=== PATIENT | male | born 1970 | race Caucasian/White ===

== ENCOUNTER 2017-03-20 14:33 | Emergency (ER) | payer BC ==
[~2017-03-20] VITALS: Ht 182.9 cm; Wt 123.4 kg
[~2017-03-20 14:33] MED LIST: ASPI81TA3 PO; CARV3.12 PO; NITR0.4T39 SL; PANT40TA4 PO
[2017-03-20 14:39] VITALS: Ht 182.9 cm; Wt 123.4 kg
[2017-03-20] MEDS ORDERED: ASPIRIN 325 MG TAB PO STA (16:06)
[2017-03-20 16:27] LABS: BASOPHILS % 0.2 % (0.0-2.0); EOSINOPHILS # 0.1 10^3/ul (0.0-0.5); EOSINOPHILS % 0.7 % (0.0-7.0); HEMATOCRIT 41.5 % (42.0-52.0); LYMPHOCYTES # 1.7 10^3/ul (0.8-2.9); LYMPHOCYTES % 21.6 % (15.0-51.0); MEAN CORPUSCULAR HEMOGLOBIN 31.1 pg (29.0-33.0); MEAN CORPUSCULAR HGB CONC 36.1 g/dl (32.0-37.0); MEAN CORPUSCULAR VOLUME 86.1 fl (82.0-101.0); MEAN PLATELET VOLUME 9.9 fl (7.4-10.4); MONOCYTE # 0.5 10^3/ul (0.3-0.9); MONOCYTES % 6.7 % (0.0-11.0); NEUTROPHIL # 5.7 10^3/ul (1.6-7.5); NEUTROPHILS % 70.6 % (39.0-77.0); PLATELET COUNT 219 10^3/UL (140-415); RED BLOOD COUNT 4.82 10^6/ul (4.70-6.10); RED CELL DISTRIBUTION WIDTH 11.9 % (11.5-14.5); WHITE BLOOD COUNT 8.1 10^3/ul (4.8-10.8)
[2017-03-20 16:45] LABS: ALANINE AMINOTRANSFERASE 57 IU/L (13-69); ALBUMIN/GLOBULIN RATIO 1.33; ALKALINE PHOSPHATASE 70 IU/L (42-121); ANION GAP 14 (8-16); ASPARTATE AMINO TRANSFERASE 25 IU/L (15-46); BILIRUBIN,INDIRECT 0.6 mg/dl (0-1.1); BILIRUBIN,TOTAL 0.6 mg/dl (0.2-1.3); BLOOD UREA NITROGEN 15 mg/dl (7-20); CALCIUM 8.7 mg/dl (8.4-10.2); CARBON DIOXIDE 27 mmol/L (21-31); CHLORIDE 102 mmol/L (97-110); CREATINE KINASE 97 IU/L (23-200); CREATININE 0.92 mg/dl (0.61-1.24); GLUCOSE 126 mg/dl (70-220); POTASSIUM 3.8 mmol/L (3.5-5.1); SODIUM 139 mmol/L (135-144)
--- NOTE | 2017-03-20 16:48 | RADRPT ---
PROCEDURE: Chest x-ray CLINICAL INDICATION: Chest pain TECHNIQUE: Chest single view COMPARISON: 11/29/2014 FINDINGS: The heart is normal in size. The pulmonary vessels are normal in caliber. The lungs are clear. Th e costophrenic angles are sharp. The visualized bony thorax is unremarkable. IMPRESSION: No acute cardiopulmonary disease. RPTAT: HH .Rogers Young MD, Date Time Electronically viewed and signed by .Rogers Young MD, on 03/20/2017 16:47 .W/
[2017-03-20 16:52] LABS: INR 0.9; PROTIME 12.2 Sec (11.9-14.9)
[2017-03-20 16:53] LABS: PARTIAL THROMBOPLASTIN TIME 30.6 Sec (25.0-35.0)
[2017-03-20 16:57] LABS: B-TYPE NATRIURETIC PEPTIDE 42 PG/ML (0-125)
[2017-03-20 17:05] LABS: CK-MB 1.03 ng/ml (0.0-2.4); TROPONIN-I < 0.012 ng/ml (0.00-0.12)
[2017-03-20 17:30] VITALS: BP 119/82; PULSE 71; RESP 6; TEMP 98
--- NOTE | 2017-03-20 17:40 | ERD ---
ER Documentation Chief Complaint Chief Complaint INTERMIT LEFT SIDED CHEST PAIN RAD TO BACK/LT ARM W/ NAUSEA X1DAY HPI This is a very pleasant 46-year-old male with no past medical history that presents to the emergency department complaining of a sudden onset of sharp shooting left-sided chest pain that began 24 hours prior to arrival. The patient indicates he has been undergoing a significant amount of stress as he was at the graveyard bearing his aunt when he developed the left-sided chest pain. He indicated that he noticed the pain go to his left and right shoulder and also to his lower back. The pain was exacerbated with movement of the left upper extremity. He is right-handed dominant. He stated that the pain has been intermittent and will last for several hours and then spontaneously resolved. He did not take any analgesic medication. Contrary to the triage note he denied any associated symptoms of nausea vomiting or diaphoresis. He does not smoke tobacco. He has no family history of coronary artery disease in his first-degree relatives at less than 55. He denied any abdominal pain. He denied any shortness of breath at rest or exertion. He stated the pain was 3 out of 10 in intensity. His primary care physician is Dr. Reynolds. ROS All systems reviewed and are negative except as per history of present illness. Medications Home Meds Discontinued Scripts Carvedilol* (Coreg*) 3.125 Mg Tab, 3.125 MG PO BID for 30 Days Prov:CEDRIC CORDON 11/30/14 Pantoprazole* (Pantoprazole*) 40 Mg Tabec, 40 MG PO BID@06,18 for 30 Days Prov:CEDRIC CORDON 11/30/14 Nitroglycerin* (Nitrostat*) 25 Tab Subl, 0.4 MG SL Q5M Y for CHEST PAIN, #14 3 doses max Prov:REGCEDRIC NOLAN 11/30/14 Aspirin (Aspirin) 81 Mg Chew, 81 MG PO DAILY for 30 Days Prov:CEDRIC CORDON 11/30/14 Allergies Allergies: Coded Allergies: No Known Allergy (Unverified , 03/20/17) PMhx/Soc Medical and Surgical Hx: pt denies Surgical Hx History of Surgery: No Anesthesia Reaction: No Hx Neurological Disorder: No Hx Respiratory Disorders: No Hx Cardiac Disorders: No Hx Psychiatric Problems: No Hx Miscellaneous Medical Probl: Yes (GERD dx year ago) Hx Alcohol Use: Yes (moderate) Hx Substance Use: No Hx Tobacco Use: Yes Smoking Status: Former smoker Physical Exam Vitals Vital Signs Date Time Temp Pulse Resp B/P Pulse Ox O2 Delivery O2 Flow Rate FiO2 03/20/17 17:30 98.0 64 12 112/88 98 Room Air 03/20/17 16:00 0 03/20/17 16:00 98.9 96 20 120/79 98 Room Air 03/20/17 14:39 97.9 78 12 138/75 98 Physical Exam Constitutional:Well-developed. Well-nourished. HEENT:Normocephalic. Atraumatic.Pupils were equal round reactive to light. Moist mucous membranes.No tonsillar exudates. Neck: No nuchal rigidity. No lymphadenopathy. No posterior cervical spine tenderness or step-offs. Respiratory: Not using accessory muscles of respiration.Lungs were clear to auscultation bilaterally. No rhonchi. No rales. No wheezing. Cardiovascular: Regular rate regular rhythm.No murmurs. No rubs were appreciated.S1, S2 normal. Distal pulses are palpable 2+ bilaterally. Reproducible left substernal chest wall tenderness with no crepitus no ecchymosis no flail chest GI: Abdomen was soft. Nontender. Non Distended. No pulsatile abdominal masses or bruits. No rebound. No guarding. Bowel sounds were present and normal. Muscle skeletal: Full range of motion of both the upper and lower extremities bilaterally.Normal muscle tone.No assymetrical calf tenderness or swelling. Skin: No petechia, no purpura. No lesions on the palms or the soles of the feet. No maculopapular rash. NEURO: Patient was alert, awake, orientated x3.No facial droop. Gait observed and normal with no ataxia.Speech had regular rate and rhythm. No focal neurological deficits. Result Diagram: 03/20/17 1615 03/20/17 1615 Results 24 hrs Laboratory Tests Test 03/20/17 16:15 White Blood Count 8.110^3/ul Red Blood Count 4.8210^6/ul Hemoglobin 15.0g/dl Hematocrit 41.5% Mean Corpuscular Volume 86.1fl Mean Corpuscular Hemoglobin 31.1pg Mean Corpuscular Hemoglobin Concent 36.1g/dl Red Cell Distribution Width 11.9% Platelet Count 43530^3/UL Mean Platelet Volume 9.9fl Neutrophils % 70.6% Lymphocytes % 21.6% Monocytes % 6.7% Eosinophils % 0.7% Basophils % 0.2% Nucleated Red Blood Cells % 0.0/100WBC Neutrophils # 5.710^3/ul Lymphocytes # 1.710^3/ul Monocytes # 0.510^3/ul Eosinophils # 0.110^3/ul Basophils # 0.010^3/ul Nucleated Red Blood Cells # 0.010^3/ul Prothrombin Time 12.2Sec Prothrombin Time Ratio 1.0 INR International Normalized Ratio 0.90 Activated Partial Thromboplast Time 30.6Sec Sodium Level 139mmol/L Potassium Level 3.8mmol/L Chloride Level 102mmol/L Carbon Dioxide Level 27mmol/L Anion Gap 14 Blood Urea Nitrogen 15mg/dl Creatinine 0.92mg/dl Glucose Level 126mg/dl Calcium Level 8.7mg/dl Total Bilirubin 0.6mg/dl Direct Bilirubin 0.00mg/dl Indirect Bilirubin 0.6mg/dl Aspartate Amino Transf (AST/SGOT) 25IU/L Alanine Aminotransferase (ALT/SGPT) 57IU/L Alkaline Phosphatase 70IU/L Creatine Kinase 97IU/L Creatine Kinase Index 1.1 Creatinine Kinase MB (Mass) 1.03ng/ml Troponin I < 0.012ng/ml B-Type Natriuretic Peptide 42PG/ML Total Protein 7.0g/dl Albumin 4.0g/dl Globulin 3.00g/dl Albumin/Globulin Ratio 1.33 Current Medications Medications (Trade) Dose Ordered Sig/Gregoria Route PRN Reason Start Time Stop Time Status Last Admin Dose Admin Aspirin (Aspirin) 325 mg ONCE STAT PO 03/20/17 16:06 03/20/17 16:07 DC 03/20/17 17:02 Procedures/[facility] The patient presented to the emergency department complaining of chest pain. My clinical evaluation and workup was to distinguish minor causes of chest pain from acute life threatening cardiopulmonary causes such as myocardial infarction , pulmonary embolism, aortic dissection, esophageal rupture, cardiac tamponade. The patient had no risk factors for pulmonary embolism. The patient was placed on a surveillance monitor, continuous pulse oximetry and IV access established by nursing staff. 12 Lead EKG tracing ordered and reviewed by myself showed: Normal sinus rhythm of 73 bpm and no arrhythmia. NE interval normal. QRS duration normal. No ST segment elevation. Q waves present in lead III however not present in II or aVF No ST segment depression. No changes consistent with acute ischemia. The patients chest pain was reproduced by palpation and horizontal flexion of the arms. It was my clinical impression that the pain was a result of inflammation of the skin and subcutaneous structures of the chest wall versus myocardial ischemia. I felt the patient had low-risk chest pain and could therefore be safely discharged with close follow-up. I did however offer admission to the patient for observation however he stated he would prefer to follow-up with his primary care physician as he also felt there was a grief component to his symptoms. He will arrange for an outpatient cardiology appointment. He had received aspirin in the emergency department. Departure Diagnosis: Primary Impression: Pleuritic chest pain Condition: Fair Patient Instructions: Chest Pain, Uncertain Cause Referrals: MYNOR REYNOLDS (PCP) HUBERT JENNINGS Mar 20, 2017 17:40
== END 2017-03-20 17:30 | disposition home or self-care (01) ==
LOC: E/R 14:33
DX: R07.81 Pleurodynia (principal); R06.02 Shortness of breath; Z79.82 Long term (current) use of aspirin; Z87.891 Personal history of nicotine dependence
CPT/HCPCS: 36415; 71010; 80053; 82550; 82553; 83880; 84484; 85025; 85610; 85730; Z7502; Z7610